=== PATIENT | female | born 2000 | race Caucasian/White ===

== ENCOUNTER 2021-10-29 17:39 | Emergency (ER) | payer OTHER, SELFPAY ==
[2021-10-29] MEDS ORDERED: Ibuprofen 200 MG TAB ONE (19:35)
== END 2021-10-29 19:48 | disposition home or self-care (01) ==
LOC: CSHERS 17:39
DX: S39.012A Strain of muscle, fascia and tendon of lower back, initial encounter (principal); F17.210 Nicotine dependence, cigarettes, uncomplicated; V43.52XA Car driver injured in collision with other type car in traffic accident, initial encounter
CPT/HCPCS: 99283